=== PATIENT | male | born 1995 | race African-American/Black ===

== ENCOUNTER 2017-11-03 13:32 | Emergency (ER) | payer SELFPAY ==
[~2017-11-03 13:32] MED LIST: AMLO10TA2 PO; IBUP1TAB7 PO; ROBA750T PO
[2017-11-03 13:33] VITALS: BP 154/110; PULSE 73; RESP 18; TEMP 98.7; O2SAT 99
[2017-11-03] MEDS ORDERED: AZIT250T3 PO (15:16)
[2017-11-03] MEDS ORDERED: NAPR500T2 PO (15:16)
--- NOTE | 2017-11-03 15:16 | PD ---
HPI Chief Complaint: ENT Complaint Time Seen by Provider: 15:05 Travel History International Travel<30 days: No Contact w/Intl Traveler<30days: No Traveled to known affect area: No History of Present Illness HPI This is a 21-year-old male who presents to the emergency department with sore throat for 1 day, constant, moderate severity with no associated fevers or chills. He's been having some difficulty swallowing. He has several children one of which is school aged. He denies any rhinorrhea PFSH Past Medical History Cardiovascular Problems: Yes (INFLAMMATION AROUND HEART @ 14 YRS OLD) Respiratory: Yes (ASTHMA CHILD) Social History Alcohol Use: No Tobacco Use: No Substance Use: No Allergies-Medications (Allergen,Severity, Reaction): Coded Allergies: amoxicillin (Unverified Allergy, Severe, ANAPHALACTIC, 11/03/17) Penicillins (Verified Allergy, Unknown, 11/03/17) Reported Meds & Prescriptions Reported Meds & Active Scripts Active Robaxin (Methocarbamol) 750 Mg Tab 750 Mg PO TID PRN Amlodipine (Amlodipine Besylate) 10 Mg Tab 10 Mg PO DAILY Ibuprofen 800 Mg Tab 800 Mg PO TID PRN Review of Systems Except as stated in HPI: all other systems reviewed are Neg Physical Exam Narrative GENERAL: Well-appearing, no acute distress, nontoxic SKIN: Warm and dry. HEAD: Atraumatic. Normocephalic. ENT: Moist mucous membranes. Posterior pharyngeal erythema with no exudates. No uvular deviation or asymmetry to suggest peritonsillar abscess. NECK: Trachea midline. Tender anterior cervical lymphadenopathy. ENT: No nasal bleeding or discharge. Moist mucous membranes MUSCULOSKELETAL: No obvious deformities. No clubbing. No cyanosis. No edema. NEUROLOGICAL: Awake and alert. No obvious cranial nerve deficits. Motor grossly within normal limits. Normal speech. PSYCHIATRIC: Appropriate mood and affect; insight and judgment normal. Data Data Last Documented VS Vital Signs Date Time Temp Pulse Resp B/P (MAP) Pulse Ox O2 Delivery O2 Flow Rate FiO2 11/03/17 13:33 98.7 73 18 154/110 (125) 99 Orders Orders Group A Rapid Strep Screen (11/03/17 13:46) MDM Medical Decision Making Medical Screen Exam Complete: Yes Emergency Medical Condition: Yes Differential Diagnosis Strep pharyngitis, viral pharyngitis, peritonsillar abscess Narrative Course This is a 21-year-old male who presents to the emergency department with sore throat that's been going on for 1 day. He has no evidence of peritonsillar abscess. He was positive for group A strep. Patient will be discharged home. Diagnosis Primary Impression: Strep pharyngitis Patient Instructions: General Instructions Additional Instructions: If you develop severe chest pain, shortness of breath, sweating, lightheadedness , dizziness or difficulty breathing return to the emergency department immediately. Followup with your primary care physician in 2-3 days if your symptoms are not resolved. Med/Other Pt SpecificInfo: Prescription(s) given Scripts Naproxen (Naproxen) 500 Mg Tab 500 MG PO BID Y for PAIN SCALE 4 TO 10, #20 TAB 0 Refills Prov: Yazmin Hanna MD 11/03/17 Azithromycin (Azithromycin) 250 Mg Tab 250 MG PO DIRECTED for Infection, #6 TAB 0 Refills Take 2 tabs (500 mg) on day 1 then 1 tab daily x 4 days. Prov: Yazmin Hanna MD 11/03/17 Disposition: 01 DISCHARGE HOME Condition: Stable Yazmin Hanna MD Nov 03, 2017 15:16
== END 2017-11-03 15:36 | disposition home or self-care (01) ==
LOC: NEPA 13:32
DX: J02.0 Streptococcal pharyngitis (principal); B95.0 Streptococcus, group A, as the cause of diseases classified elsewhere
CPT/HCPCS: 87880; 99283

== ENCOUNTER 2018-02-20 20:22 | Emergency (ER) | payer SELFPAY ==
[~2018-02-20] VITALS: Ht 180.3 cm; Wt 173.0 kg
[~2018-02-20 20:22] MED LIST changes: +AZIT250T3 PO; +NAPR500T2 PO
[2018-02-20 20:40] VITALS: BP 156/79; PULSE 92; RESP 18; TEMP 98.6; O2SAT 97
--- NOTE | 2018-02-20 21:09 | PD ---
HPI Chief Complaint: Cold / Flu Symptoms Time Seen by Provider: 21:00 Travel History International Travel<30 days: No Contact w/Intl Traveler<30days: No Traveled to known affect area: No History of Present Illness HPI 22-year-old male here for evaluation of cough, headaches, nausea, vomiting, nasal congestion, chest congestion. Symptoms started 3 days ago with cough productive of yellowish sputum. No hemoptysis. He has had subjective fevers and chills. He has had 4 episodes of vomiting. No abdominal pain. He also describes a few episodes of loose bowel movements. He has had intermittent frontal headaches. Currently he has no headache. He took DayQuil prior to arrival. He smokes marijuana occasionally. Denies any other illicit drugs. [facility] Past Medical History Medical History: Denies Significant Hx Cardiovascular Problems: Yes (INFLAMMATION AROUND HEART @ 14 YRS OLD) Respiratory: Yes (ASTHMA CHILD) Past Surgical History Surgical History: No Previous Surgery Social History Alcohol Use: No Tobacco Use: No Substance Use: No Allergies-Medications (Allergen,Severity, Reaction): Coded Allergies: amoxicillin (Unverified Allergy, Severe, ANAPHALACTIC, 11/03/17) Penicillins (Verified Allergy, Unknown, 11/03/17) Reported Meds & Prescriptions Reported Meds & Active Scripts Active Naproxen 500 Mg Tab 500 Mg PO BID PRN Azithromycin 250 Mg Tab 250 Mg PO DIRECTED Take 2 tabs (500 mg) on day 1 then 1 tab daily x 4 days. Robaxin (Methocarbamol) 750 Mg Tab 750 Mg PO TID PRN Amlodipine (Amlodipine Besylate) 10 Mg Tab 10 Mg PO DAILY Ibuprofen 800 Mg Tab 800 Mg PO TID PRN Review of Systems Except as stated in HPI: all other systems reviewed are Neg Physical Exam Narrative GENERAL: Well-developed, well-nourished, overweight, comfortably watching TV, no apparent distress. SKIN: Focused skin assessment warm/dry. HEAD: Atraumatic. Normocephalic. EYES: Pupils equal and round. No scleral icterus. No injection or drainage. ENT: No nasal bleeding or discharge. Mucous membranes pink and moist. Normal pharynx. NECK: Trachea midline. No JVD. No nuchal rigidity. CARDIOVASCULAR: Regular rate and rhythm. RESPIRATORY: No accessory muscle use. Slight end expiratory wheezes bilaterally. No rales or rhonchi. Breath sounds equal bilaterally. GASTROINTESTINAL: Abdomen soft, non-tender, nondistended. MUSCULOSKELETAL: No obvious deformities. No clubbing. No cyanosis. No edema. NEUROLOGICAL: Awake and alert. No obvious cranial nerve deficits. Motor grossly within normal limits. Normal speech. PSYCHIATRIC: Appropriate mood and affect; insight and judgment normal. Data Data Last Documented VS Vital Signs Date Time Temp Pulse Resp B/P (MAP) Pulse Ox O2 Delivery O2 Flow Rate FiO2 02/20/18 20:40 98.6 92 18 156/79 (104) 97 Orders Orders Influenzae A/B Antigen (02/20/18 21:04) Group A Rapid Strep Screen (02/20/18 21:04) Chest, Pa & Lat (02/20/18 ) Albuterol-Ipratropium Neb (Duoneb Neb) (02/20/18 21:15) Prednisone (Deltasone) (02/20/18 21:15) Azithromycin (Zithromax) (02/20/18 22:15) MDM Medical Decision Making Medical Screen Exam Complete: Yes Emergency Medical Condition: Yes Differential Diagnosis Bronchitis, pneumonia, reactive airway disease, influenza, viral illness, meningitis/encephalitis/SAH unlikely Narrative Course Vital signs reviewed. Group A strep positive. Influenza negative. Chest x-ray: Mild increased perihilar interstitial markings are noted suggesting possible viral pneumonitis. Patient was made aware of all findings. He was provided 3 DuoNeb treatments and oral prednisone. He is allergic to penicillins. He will be started on azithromycin. I will also give him a prescription for Albuterol and prednisone for bronchitis type symptoms. He is stable for discharge home with outpatient follow-up. I will given the information to the [facility] to follow-up with this week. He was advised on when to return to the emergency department. He verbalizes understanding and agreement with plan. Diagnosis Primary Impression: Strep pharyngitis Additional Impression: Bronchitis Referrals: [facility] 3 days Additional Instructions: Follow-up with a primary care physician this week. Return to the emergency department for worsening symptoms or any other concerns. Scripts Azithromycin (Zithromax Z-Marvin) 250 Mg Dspk 250 MG PO DIRECTED for Infection, #1 DSPK 0 Refills 500 MG (2 tabs) day 1, then 1 tab days 2-5. Prov: Kishan Fraire MD 02/20/18 Prednisone (Prednisone) 50 Mg Tab 50 MG PO DAILY for 5 Days, #5 TAB 0 Refills Prov: Kishan Fraire MD 02/20/18 Albuterol 18 GM Inh (Ventolin Hfa 18 GM Inh) 90 Mcg/Act Aer 2 PUFF INH Q4-6H Y for SHORTNESS OF BREATH, #1 INHALER 0 Refills Prov: Kishan Fraire MD 02/20/18 Disposition: 01 DISCHARGE HOME Condition: Stable Kishan Fraire MD February 20, 2018 21:09
[2018-02-20] MEDS ORDERED: predniSONE 50 MG TAB PO ONE (21:15)
[2018-02-20] MEDS: RESP: ALBUTEROL 2.5 MG/IPRATROPIUM 0.5 MG NEB (SCH) INH (21:17)
--- NOTE | 2018-02-20 21:25 | RADRPT ---
EXAM DATE/TIME: 02/20/2018 21:13 [place] COMPARISON: No previous studies available for comparison. INDICATIONS : Cough and congestion for the past week. Vomiting since yesterday. MEDICAL HISTORY : Cardiovascular disease. Asthma. SURGICAL HISTORY : None. ENCOUNTER: Initial ACUITY: 1 week PAIN SCORE: 3/10 LOCATION: Bilateral chest FINDINGS: Mild increased perihilar interstitial markings are noted suggesting possible viral pneumonitis. Clini duy correlation is recommended. The heart is normal. CONCLUSION: Mild increased perihilar interstitial markings are noted suggesting possible viral pneumonitis. Clini duy correlation is recommended. Wally Bryant MD on February 20, 2018 at 21:21 Board Certified Radiologist. This report was verified electronically.
[2018-02-20] MEDS ORDERED: PRED50 PO (22:09)
[2018-02-20] MEDS ORDERED: ZITHTAB PO (22:09)
[2018-02-20] MEDS ORDERED: VENTAER INH (22:09)
[2018-02-20] MEDS ORDERED: AZITHROMYCIN 250 MG TAB PO ONE (22:15)
== END 2018-02-20 22:28 | disposition home or self-care (01) ==
LOC: NEPD 20:22
DX: J02.0 Streptococcal pharyngitis (principal); J45.909 Unspecified asthma, uncomplicated; F12.90 Cannabis use, unspecified, uncomplicated
CPT/HCPCS: 71046; 87804; 87880; 94640; 94664; 99284; J7512